=== PATIENT | male | born 1960 | race Caucasian/White ===

== ENCOUNTER → 2019-08-19 08:42 | Outpatient (CLI) | payer BC, SELFPAY ==
[2019-08-19 09:49] LABS: Hemoglobin 16.3 g/dL (13.0-16.5); Mean Corp Hgb Conc 34.7 g/dL (32-36); Mean Corpuscular Hgb 29.8 pg (27.0-32.0); Mean Corpuscular Volume 85.9 fL (80-94); Platelet Count 242 K/mm3 (150-450); RBC Distribution Width CV 12.8 % (11.6-14.6); RBC Distribution Width SD 39.8 fl (35.1-43.9); Red Blood Count 5.47 M/mm3 (4.6-6.2); White Blood Count 6.4 K/mm3 (4.4-11.0)
[2019-08-19 10:05] LABS: Vitamin B12 416 pg/mL (211-911); Vitamin D,25 Hydroxy 18.2 ng/mL
[2019-08-19 10:06] LABS: Progesterone Level < 0.21 ng/mL (See Comment)
[2019-08-19 10:07] LABS: Hemoglobin A1c 5.6 % (4.2-6.3); Homocysteine 8.3 umol/L (3.2-10.7)
[2019-08-19 10:21] LABS: ALB/GLOB Ratio 1.2 RATIO (0.9-2.4); AST(SGOT) 26 U/L (15-37); Alanine Aminotransfer ALT/SGPT 49 U/L (16-61); Albumin, Serum 4.1 g/dL (3.2-5.0); Alkaline Phosphatase 89 U/L (45-117); Anion Gap 8 (5-15); BUN 16 mg/dL (7-18); CRP, High Sensitivity Cardiac 2.96 mg/L; Calcium,Total 8.9 mg/dL (8.5-10.1); Chloride 103 mmol/L (98-107); Cholesterol 206 mg/dL (200); EST Glomerular Filtration Rate 82 mL/min (>60); Est Glom Filt Rate - Afr Amer 99 mL/min (>60); Estradiol 38.8 pg/mL; Follicle Stimulating Hormone 2.5 mIU/mL; Free T3 3.6 pg/mL (2.18-3.98); Globulin 3.4 g/dL (2.2-4.2); Glucose 113 mg/dL (74-106); High Density Lipoprotein 33 mg/dL; Iron 78 ug/dL (65-175); Luteinizing Hormone 4.4 mIU/mL; Magnesium 2.1 mg/dL (1.6-2.6); PSA,Total - Annual Screen 1.05 ng/mL (0.00-4.00); Potassium 3.8 mmol/L (3.5-5.1); Prolactin 5.4 ng/mL; Protein, Total 7.5 g/dL (6.4-8.2); Sodium Level 140 mmol/L (136-145); T4 Free Direct 0.74 ng/dL (0.76-1.46); T4 Total, Thyroxin 6.7 ug/dL (4.5-12.1); Thyroid Stim Hormone (TSH) 1.08 uIU/mL (0.358-3.74); Triglycerides 407 mg/dL
[2019-08-22 16:07] LABS: DHEA Sulfate 160.1 ug/dL (48.9-344.2); Insulin Like Growth Factor 114 ng/mL (54-194); Testosterone, % Free 2.39 % (1.50-4.20); Testosterone, Free 14.46 ng/dL (5.00-21.00)
[2019-08-23 14:33] LABS: Sex Hormone-binding Globulin 47.6 nmol/L (19.3-76.4); Testosterone, Total 605 ng/dL (264-916)
== END ==
PROVIDERS: PCP Nurse Practitioner Family; Referring Provider Nurse Practitioner Family; Visit Provider Nurse Practitioner Family
DX: R53.82 Chronic fatigue, unspecified (principal); M62.81 Muscle weakness (generalized); R68.82 Decreased libido; E66.9 Obesity, unspecified
CPT/HCPCS: 36415; 80053; 80061; 82306; 82533; 82607; 82627; 82670; 82746; 83001; 83002; 83036; 83090; 83540; 83735; 84144; 84146; 84153; 84270; 84305; 84402; 84403; 84436; 84439; 84443; 84481; 85027; 86141; 82626; G0103

== ENCOUNTER → 2019-10-11 16:20 | Outpatient (CLI) | payer BC, SELFPAY ==
[2019-10-11 17:46] LABS: Hematocrit 49.4 % (40-54); Hemoglobin 16.5 g/dL (13.0-16.5); Mean Corp Hgb Conc 33.4 g/dL (32-36); Mean Corpuscular Hgb 30.2 pg (27.0-32.0); Mean Corpuscular Volume 90.3 fL (80-94); Mean Platelet Vol. 10.1 fl (6.2-12.0); Platelet Count 272 K/mm3 (150-450); RBC Distribution Width CV 12.8 % (11.6-14.6); RBC Distribution Width SD 42.3 fl (35.1-43.9); Red Blood Count 5.47 M/mm3 (4.6-6.2); White Blood Count 6.2 K/mm3 (4.4-11.0)
[2019-10-11 18:50] LABS: ALB/GLOB Ratio 1.1 RATIO (0.9-2.4); AST(SGOT) 23 U/L (15-37); Alanine Aminotransfer ALT/SGPT 43 U/L (16-61); Albumin, Serum 3.9 g/dL (3.2-5.0); Alkaline Phosphatase 67 U/L (45-117); Anion Gap 9 (5-15); BUN 11 mg/dL (7-18); BUN/Creat Ratio 12.4 RATIO (10-20); Calcium,Total 8.3 mg/dL (8.5-10.1); Chloride 106 mmol/L (98-107); Cholesterol 168 mg/dL (200); Creatinine, Serum 0.89 mg/dL (0.70-1.30); EST Glomerular Filtration Rate 94 mL/min (>60); Est Glom Filt Rate - Afr Amer 113 mL/min (>60); Estradiol 111.4 pg/mL; Globulin 3.5 g/dL (2.2-4.2); Glucose 79 mg/dL (74-106); High Density Lipoprotein 28 mg/dL; Potassium 3.5 mmol/L (3.5-5.1); Protein, Total 7.4 g/dL (6.4-8.2); Sodium Level 141 mmol/L (136-145); Triglycerides 188 mg/dL; Very Low Density Lipoprotein 38 mg/dL (5-40)
[2019-10-12 09:33] LABS: Vitamin B12 350 pg/mL (211-911); Vitamin D,25 Hydroxy 107.6 ng/mL
[2019-10-12 09:36] LABS: Progesterone Level < 0.21 ng/mL (See Comment)
[2019-10-17 09:36] LABS: Testosterone, % Free 2.74 % (1.50-4.20); Testosterone, Free 35.95 ng/dL (5.00-21.00)
[2019-10-17 23:55] LABS: Testosterone, Total 1312 ng/dL (264-916)
== END ==
PROVIDERS: PCP Family Medicine; Referring Provider Family Medicine; Visit Provider Family Medicine
DX: I10 Essential (primary) hypertension (principal); R53.82 Chronic fatigue, unspecified; M62.81 Muscle weakness (generalized); R68.82 Decreased libido
CPT/HCPCS: 36415; 80053; 80061; 82306; 82607; 82627; 82670; 82746; 84144; 84402; 84403; 85027; 82626

== ENCOUNTER → 2020-04-12 16:20 | Outpatient (CLI) | payer BC, SELFPAY ==
[2020-04-12 18:13] LABS: Anion Gap 6 (5-15); BUN 15 mg/dL (7-18); BUN/Creat Ratio 14.9 RATIO (10-20); Calcium,Total 9.4 mg/dL (8.5-10.1); Chloride 103 mmol/L (98-107); Creatinine, Serum 1.01 mg/dL (0.70-1.30); EST Glomerular Filtration Rate 81 mL/min (>60); Est Glom Filt Rate - Afr Amer 98 mL/min (>60); Glucose 85 mg/dL (74-106); Potassium 3.7 mmol/L (3.5-5.1); Sodium Level 139 mmol/L (136-145)
== END ==
PROVIDERS: PCP Family Medicine; Referring Provider Family Medicine; Visit Provider Family Medicine
DX: I10 Essential (primary) hypertension (principal)
CPT/HCPCS: 36415; 80048

== ENCOUNTER → 2020-10-12 14:01 | Outpatient (CLI) | payer BC, SELFPAY ==
[2020-10-12 15:38] LABS: Anion Gap 5 (5-15); BUN 14 mg/dL (7-18); BUN/Creat Ratio 15.6 RATIO (10-20); Calcium,Total 9.3 mg/dL (8.5-10.1); Chloride 107 mmol/L (98-107); Cholesterol 150 mg/dL (200); EST Glomerular Filtration Rate 92 mL/min (>60); Est Glom Filt Rate - Afr Amer 111 mL/min (>60); Glucose 84 mg/dL (74-106); High Density Lipoprotein 37 mg/dL; Potassium 3.6 mmol/L (3.5-5.1); Sodium Level 140 mmol/L (136-145); Triglycerides 151 mg/dL; Very Low Density Lipoprotein 30 mg/dL (5-40)
== END ==
PROVIDERS: PCP Family Medicine; Referring Provider Family Medicine; Visit Provider Family Medicine
DX: I10 Essential (primary) hypertension (principal)
CPT/HCPCS: 36415; 80048; 80061

== ENCOUNTER → 2021-04-12 15:45 | Outpatient (CLI) | payer BC, SELFPAY ==
[2021-04-12 17:45] LABS: Anion Gap 6 (5-15); BUN 12 mg/dL (7-18); BUN/Creat Ratio 12.3 RATIO (10-20); Calcium,Total 8.9 mg/dL (8.5-10.1); Chloride 108 mmol/L (98-107); Creatinine, Serum 0.98 mg/dL (0.70-1.30); EST Glomerular Filtration Rate 83 mL/min (>60); Est Glom Filt Rate - Afr Amer 101 mL/min (>60); Glucose 90 mg/dL (74-106); Sodium Level 141 mmol/L (136-145)
== END ==
PROVIDERS: PCP Family Medicine; Referring Provider Family Medicine; Visit Provider Family Medicine
DX: I10 Essential (primary) hypertension (principal)
CPT/HCPCS: 36415; 80048

== ENCOUNTER 2024-01-30 13:30 | Outpatient (RCR) | payer SELFPAY ==
--- NOTE | 2024-01-05 22:33 | HP.PTEVAL_ITS ---
Patient's Visit Information Visit Information Visit Information: HIMANSHU ROUSE is a 63 year old M referred to Physical Therapy by Dr. Hermelindo Leiva MD with a diagnosis of L HIP OA. Date of Evaluation: 01/02/24 Physical Therapist: Ana Girard, PT, Cert MDT Visit Plan Frequency: 2-3x /Week Duration: 6-8 wks Plan: AQUATIC AND LAND PT TO HELP MEET SET GOALS. CORE AND R LE ROM, STRETCHING AND STRENGTHENING. R HIP MANUAL TRACTION AND MOBILIZATION TO HELP INCREASE EXTENSION ROM TOLERATED. BIKE. CP. GAIT TRAINING. HEP. Subjective Subjective: Work/Leisure: RETIRED FROM [employer] ABOUT 1.5 YRS AGO. HOBBIES: HOME IMPROVEMENT, YARDWORK, WALKING. Present symptoms: LEFT HIP PAIN - LATERALLY AND INTO THE GROIN. Present since: 4 MONTHS AGO Pain Scale: WORST 8/10, LEAST 1/10 Currently: 4/10 Is it getting better, worse or staying the same: GETTING WORSE Commenced as a result of: [place] THEN HELPING/PICKING UP AN ELDERLY MAN Symptoms at onset: L HIP SHARP PAIN Worse: THE DAY PROGRESSES, STEPPING OUT TO THE SIDE, WALKING (ESPECIALLY MORE THAN 1/2 MILE), INTIMACY, LYING ON L SIDE, PUTTING SOCKS ON, GETTING IN/OUT OF CAR Better: IN THE MORNING, IBUPROFEN, SITTING Disturbed sleep: YES Previous history/Previous treatment: UNREMARKABLE Treatment this episode: MELOXICAM, IBUPROFEN, PREDNISONE Bowel or Bladder Dysfunction: NO Accidents: NO Unexplained weight loss: NO Imaging: PATIENT REPORTS RECENT X-RAYS SHOW HIS LEFT HIP IS BONE ON BONE. PMH/Recent major surgery: HTN Objective Objective: GAIT: THIS PATIENT AMBULATES INDEP'LY INTO PT TODAY WITH A MILD LIMP ON HIS LLE WITHOUT ANY AD'S LEFS score: 38 TU.6 SEC WITHOUT AD. L Hip Flex AROM in [place] DEG - ERP L Hip Flex PROM in Supine: 94 DEG - ERP L Hip Abd AROM in [place] DEG - ERP L Hip Abd PROM in Supine: 40 Deg. L Hip Ext AROM in Standing: -5 to 10 deg. L knee AROM in Supine: WFL Left LE strength hip flexion 3-/5, abduction 2+/5, adduction 4-/5, extension 2/5, knee flexion 5/5, knee extension 5/5, ankle DF 45/5, ankle PF 5/5 Right LE strength hip flexion 4/5, abduction 4/5, adduction 5/5, extension 4/5, knee flexion 5/5, knee extension 5/5, ankle DF 5/5, ankle PF 5/5 SLS right [10+], left [10+] Sensory deficit: ANDREE LE LIGHT TOUCH SENSATION GROSSLY INTACT AND SYMMETRICAL Balance/Special Test Scores Lower Extremity Functional Score: 38 Goals Goal 1:: Pt. will improve left LE strength to 4/5 for all motions in order to improve stability and balance. Goal Time Frame: 4-6 Weeks Goal 2:: Pt. will be able to walk at least 10 minutes without AD or difficulty and no rest break in order to improve endurance. Goal Time Frame: 4-6 Weeks Goal 3:: Pt. will be able to complete at least 10 sit to stands in 30 secs without arm assist or c/o LLE pain in order to improve ADL's. Goal Time Frame: 4-6 Weeks Goal 4:: Pt. will be able to complete LE dressing with no pain or difficulty. Goal Time Frame: 4-6 Weeks Goal 5:: Pt. will improve LEFS score by at least 10 points in order to improve mobility and ADL's. Goal Time Frame: 4-6 Weeks Rehabilitation Potential Physical Therapy Diagnosis: Decreased left LE strength, left LE stiffness, difficulty walking and pain Rehabilitation Potential: Fair Anticipated Interventions Patient/Client Instruction: Educate patient on: Condition, Plan of Care and Risk Factors For the Purpose of:: To improve self management Therapeutic Exercise to Include: Strength training, Balance training, Flexibilty training, Gait and locomotor training, Neuromotor development, In an aquatic setting, Passive ROM and Active ROM Comment: Manual Therapy: -Prone belt assisted AP hip extension mobilization -Supine belt assisted distraction with circumduction -Supine belt assisted lateral glides For the Purpose of:: To decrease pain, To decrease swelling/inflammation, To increase ROM, To improve nutrient delivery to tissue, To improve muscle performance and motor function, To increase tolerance to activity/condition/position, To improve ability of physical actions for home/community/work/leisure, To improve gait and locomotor functions, To increase flexibility/ROM, To improve safety with gait and To improve self management Manual Therapy Techniques to Include: Mobilization and Passive ROM For the Purpose of:: To decrease pain, To increase ROM, To improve nutrient delivery to tissue, To decrease soft tissue restriction and To increase flexibility/ROM Cryotherapy (ice pack, ice massage): Yes Thermo therapy (hot pack): Yes Ultrasound (thermal/non thermal): Yes For the Purpose of:: To decrease pain, To decrease swelling/inflammation and To improve nutrient delivery to tissue Text: Thank you for the opportunity to evaluate your patient. For Medicare and Medicare HMO plans, please review the plan of care and approve it. It will need to be FAXED BACK to us at [phone] for Medicare purposes. For Medicare only, by signing this I certify the plan of care. Please let me know if there are questions or concerns regarding this plan of care. Physician Signature: Date:
--- NOTE | 2024-01-30 14:51 | HP.PTDCSUM_ITS ---
Discharge Summary D/C summary: It has been my pleasure to treat HIMANSHU ROUSE referred by Dr. Hermelindo Leiva MD, with the diagnosis of L HIP OA for a total of 10 visit(s). Discharge Date: 01/30/24 Please see the following information for a summary of their discharge status. Subjective Subjective: THIS PATIENT PRESENTS TO PT TODAY REPORTING HE CONTINUES TO IMPROVE SLOWLY. PATIENT REPORTS GETTING HIS L SOCK ON IS GETTING A LITTLE EASIER BUT STILL DIFFICULT. PATIENT STATES HE IS MOVING. HE BOUGHT A HOUSE. HE IS MOVING CLOSING March. HE HIRED A [employer] BUT THERE IS STILL A LOT TO DO. HE FEELS HE WE HAVE GIVEN HIM THE TOOLS HE NEEDS AND HE WOULD LIKE TO CONTINUE ON HIS OWN AT THIS POINT. HE PLANS TO FOLLOW UP WITH DR. LEIVA AND CONSIDER A CORTISON SHOT AND THEN A HIP REPLACEMENT IN JUN OR JULY AFTER THEY MOVE. Pain Left hip: Pain Intensity (Out of 10): 3 Overall Improvement % Improvement: 75 Objective Objective/Function: This patient has made good progress with PT but is still limited in terms of L hip ROM, Strength, Pain and Function. He is indep with a HEP and plans to follow up with Dr. Leiva to discuss next steps. Upon exam today: LEFS score: 62 (38 at eval) TU.05 SEC WITHOUT AD. L Hip Flex AROM in [place] DEG - NO ERP L Hip Flex PROM in Supine: 111 DEG - ERP L Hip Abd AROM in [place] DEG - ERP L Hip Abd PROM in Supine: 40 Deg. L Hip Ext AROM in Standing: +5 deg. L Hip IR/ER decreased ROM compared to R and ERP both directions. Strength: L Hip 3-/5, L Knee 5/5, L Ankle 5/5. OTHER: PATIENT IS NOW ABLE TO SQUAT WITH MILD C/O PAIN AND JUMP WITHOUT C/O PAIN. THIS PT ADVISED AGAINST RUNNING AND JUMPING WELL ANY OTHER ACTIVITIES THAT PROVOKE R HIP OR GROIN PAIN. Goals Goal 1:: Pt. will improve left LE strength to 4/5 for all motions in order to improve stability and balance. Goal Progress: Progressing Goal 2:: Pt. will be able to walk at least 10 minutes without AD or difficulty and no rest break in order to improve endurance. Goal Progress: Goal Met Goal 3:: Pt. will be able to complete at least 10 sit to stands in 30 secs without arm assist or c/o LLE pain in order to improve ADL's. Goal 4:: Pt. will be able to complete LE dressing with no pain or difficulty. Goal Progress: Progressing Goal 5:: Pt. will improve LEFS score by at least 10 points in order to improve mobility and ADL's. Goal Progress: Goal Met Plan Plan: D/C D/C Information d/c sentence: If there are questions or concerns regarding this patient's physical therapy, please feel free to call me at [phone]. Thank you for the referral of this patient. Sincerely, Ana Girard, PT, Cert MDT Balance/Gait/Functional tests Balance/Special Test Scores Lower Extremity Functional Score: 62 Improvement % Improvement: 75
== END 2024-01-30 19:00 | disposition home or self-care (01) ==
LOC: PT 13:30
PROVIDERS: PCP Family Medicine; Visit Provider Specialist
DX: M16.12 Unilateral primary osteoarthritis, left hip (principal)
CPT/HCPCS: 97110; 97113; 97140; 97162; 97530